=== PATIENT | female | born 1990 | race African-American/Black ===

== ENCOUNTER 2025-03-12 14:37 | Emergency (ER) | payer OTHER ==
[~2025-03-12] VITALS: Ht 170.2 cm; Wt 90.0 kg
[2025-03-12 14:39] VITALS: O2SAT 98
[2025-03-12] MEDS: SODIUM CHLORIDE 0.9% 1,000 ML IV ONE (16:00)
[2025-03-12 17:26] LABS: BASOPHILS % 0.5 % (0.0-2.0); EOSINOPHILS % 1.4 % (0.0-5.0); HEMATOCRIT. 33.7 % (36.0-48.0); HEMOGLOBIN. 10.7 g/dL (12.0-16.0); LYMPHOCYTES % 38.4 % (20.0-50.0); MEAN PLATELET VOLUME 7.2 fl (7.4-10.4); MONOCYTES % 5.1 % (2.0-8.0); NEUTROPHILS % 54.6 % (40.0-76.0); PLATELET 242 x1000/uL (130-400); RED BLOOD CELL COUNT 3.85 mill/uL (4.2-5.4); RED CELL DISTRIBUTION WIDTH 16.5 % (11.6-14.6)
[2025-03-12 17:50] LABS: TROPONIN I HIGH SENSITIVITY < 4 ng/L (3.0-34)
[2025-03-12 17:53] LABS: CREATININE 0.7 mg/dL (0.6-1.0); UREA NITROGEN BLOOD 7 mg/dL (9-23)
[2025-03-12 17:55] LABS: ASPARTATE AMINOTRANSFERASE 14 IU/L (<34); BILIRUBIN TOTAL 0.2 mg/dL (0.1-1.0); PROTEIN TOTAL 6.5 g/dL (6.0-8.3)
[2025-03-12 17:56] LABS: HCG SCREEN NEGATIVE
[2025-03-12] MEDS: KETOROLAC 15MG/ML VIAL IV ONE (20:40)
[2025-03-12 21:45] VITALS: BP 126/92; PULSE 88; RESP 15; TEMP 37.1; O2SAT 97
[2025-03-12 22:28] LABS: TROPONIN I HIGH SENSITIVITY < 4 ng/L (3.0-34)
[2025-03-12] MEDS ORDERED: IOHEXOL-350 100 ML BOTTLE ONE (23:59)
== END 2025-03-12 22:35 | disposition admitted as inpatient to this hospital (09) ==
LOC: ER 14:37
DX: R07.89 Other chest pain (principal); R55 Syncope and collapse; J45.909 Unspecified asthma, uncomplicated; E11.9 Type 2 diabetes mellitus without complications; I10 Essential (primary) hypertension; Z79.899 Other long term (current) drug therapy; Z88.0 Allergy status to penicillin
CPT/HCPCS: 99285; 96374; 71275; 71045; 96361; 80053; 82962; 84703; 83735; 85025; 85379; 84484; 36415; J1885; Q9967; J7030; A4606